=== PATIENT | female | born 1995 | race Caucasian/White ===

== ENCOUNTER 2018-01-04 17:18 | Emergency (ER) | payer SELFPAY ==
[~2018-01-04] VITALS: Ht 154.9 cm; Wt 62.3 kg
[2018-01-04 17:26] VITALS: BP 121/67; Ht 154.9 cm; Wt 62.3 kg
== END 2018-01-04 18:12 | disposition home or self-care (01) ==
LOC: ED 17:18
DX: L03.317 Cellulitis of buttock (principal)

== ENCOUNTER 2018-06-10 11:25 | Emergency (ER) | payer OTHER ==
[~2018-06-10] VITALS: Ht 152.4 cm; Wt 60.8 kg
[2018-06-10 11:31] VITALS: BP 113/69; Ht 152.4 cm; Wt 60.8 kg
== END 2018-06-10 12:39 | disposition home or self-care (01) ==
LOC: ED 11:25
DX: L03.317 Cellulitis of buttock (principal)
CPT/HCPCS: J0696; J1885

== ENCOUNTER 2018-10-08 14:46 | Emergency (ER) | payer OTHER ==
[~2018-10-08] VITALS: Ht 152.4 cm; Wt 59.9 kg
[2018-10-08 14:52] VITALS: Ht 152.4 cm; Wt 59.9 kg
[2018-10-08 17:18] VITALS: BP 110/76
== END 2018-10-08 17:18 | disposition home or self-care (01) ==
LOC: ED 14:46
DX: L02.416 Cutaneous abscess of left lower limb (principal)